=== PATIENT | male | born 1960 | race Caucasian/White ===

== ENCOUNTER 2017-05-26 23:31 | Emergency (ER) | payer MEDICARE, MEDICAID ==
[~2017-05-26] VITALS: Ht 172.7 cm; Wt 69.0 kg
[~2017-05-26 23:31] MED LIST: ACET160S PO; ATOR20TA65 PO; DIVA500T3 PO; HYDR-4134 PO; MAGN311T3 PO; METO25TA6 PO; QUET300T2 PO; SENN-169 PO; SIME125C PO; TEMA15CA5 PO
[2017-05-27] MEDS ORDERED: IBUPROFEN 400MG TABLET PO ONE
[2017-05-27] MEDS ORDERED: ACETAMINOPHEN 500MG TABLET PO ONE
[2017-05-27 02:47] VITALS: BP 111/70
== END 2017-05-27 02:49 | disposition home or self-care (01) ==
LOC: ER 23:31
DX: G89.29 Other chronic pain (principal); M54.5 Low back pain; I50.9 Heart failure, unspecified; I11.0 Hypertensive heart disease with heart failure; J44.9 Chronic obstructive pulmonary disease, unspecified; E11.9 Type 2 diabetes mellitus without complications; Z93.0 Tracheostomy status
CPT/HCPCS: 99283